=== PATIENT | female | born 1955 | race African-American/Black ===

== ENCOUNTER 2020-08-04 17:41 | Inpatient (IN) | payer OTHER ==
[~2020-08-04] VITALS: Ht 170.2 cm; Wt 80.0 kg
[2020-08-04 18:29] LABS: BASOPHILS % 0.4 % (0.0-2.0); EOSINOPHILS % 0.3 % (0.0-5.0); HEMATOCRIT. 44.2 % (36.0-48.0); HEMOGLOBIN. 14.4 g/dL (12.0-16.0); LYMPHOCYTES % 19.3 % (20.0-50.0); MEAN CORPUSCULAR HEMOGLOBIN 29.2 pg (28.0-32.0); MEAN CORPUSCULAR VOLUME 89.3 fL (81.0-99.0); MEAN PLATELET VOLUME 7.5 fl (7.4-10.4); MONOCYTES % 8.6 % (2.0-8.0); NEUTROPHILS % 71.4 % (40.0-76.0); PLATELET 135 x1000/uL (130-400); RED BLOOD CELL COUNT 4.95 mill/uL (4.2-5.4)
[2020-08-04 18:33] LABS: CHLORIDE 104 mEq/L (98-107)
[2020-08-04 18:38] LABS: ETHANOL BLOOD < 10 mg/dL; INR 1.1; PROTHROMBIN TIME 11.1 sec (9.6-11.0)
[2020-08-04 18:42] LABS: CREATINE KINASE 224 IU/L (26-192)
[2020-08-04 22:27] LABS: CLARITY URINE CLEAR (CLEAR); COLOR URINE DARK YELLOW (YELLOW); KETONES URINE 2+ (NEGATIVE); LEUKOCYTE ESTERASE URINE TRACE (NEGATIVE); NITRITE URINE NEGATIVE (NEGATIVE); OCCULT BLOOD URINE NEGATIVE (NEGATIVE); PH URINE 5.5 (4.5-8.0); PROTEIN URINE 2+ (NEGATIVE); SPECIFIC GRAVITY URINE 1.029 (1.005-1.030)
[2020-08-04 22:38] LABS: *AMPHETAMINES SCREEN URINE NEGATIVE (NEGATIVE); *BARBITURATES SCREEN URINE NEGATIVE (NEGATIVE); *BENZODIAZEPINES SCREEN URINE NEGATIVE (NEGATIVE); *COCAINE SCREEN URINE NEGATIVE (NEGATIVE); CANNABINOID URINE SCREEN NEGATIVE (NEGATIVE)
[2020-08-04 22:39] LABS: METHADONE URINE SCREEN NEGATIVE (NEGATIVE); OPIATES URINE SCREEN NEGATIVE (NEGATIVE); PHENCYCLIDINE URINE SCREEN NEGATIVE (NEGATIVE)
[2020-08-04] MEDS ORDERED: ACETAMINOPHEN 325MG TABLET PO PRN (22:45)
[2020-08-04] MEDS ORDERED: MAGNESIUM/ALUMINUM HYDROXIDE/SIMETHICONE 30ML UDC PO PRN (22:45)
[2020-08-04] MEDS ORDERED: HYDROCODONE/ACETAMINOPHEN 5/325MG TABLET PO PRN (22:45)
[2020-08-04] MEDS ORDERED: SODIUM CHLORIDE 0.45% 1,000 ML IV SCH (22:45)
[2020-08-04] MEDS ORDERED: NA PHOS,M-B/NA PHOS,DI-BA ENEMA 118ML PR PRN (22:45)
[2020-08-04] MEDS ORDERED: GUAIFENESIN 200MG/10ML SUGAR FREE UDC PO PRN (22:45)
[2020-08-04] MEDS ORDERED: ONDANSETRON HCL 4MG/2ML INJ IV PRN (22:45)
[2020-08-04] MEDS ORDERED: DOCUSATE SODIUM 100MG CAPSULE PO PRN (22:45)
[2020-08-04] MEDS ORDERED: CLONIDINE 0.1MG TABLET PO PRN (22:45)
[2020-08-04] MEDS ORDERED: CEFTRIAXONE 1 G PREMIX 50 ML IV SCH (23:30)
[2020-08-05] MEDS ORDERED: CEFTRIAXONE 1 G PREMIX 50 ML IV SCH
[2020-08-05 06:26] LABS: BASOPHILS % 0.3 % (0.0-2.0); EOSINOPHILS % 0.6 % (0.0-5.0); HEMOGLOBIN. 13.3 g/dL (12.0-16.0); LYMPHOCYTES % 29.6 % (20.0-50.0); MEAN CORPUSCULAR HEMOGLOBIN 29.4 pg (28.0-32.0); MEAN CORPUSCULAR VOLUME 88.1 fL (81.0-99.0); MEAN PLATELET VOLUME 7.5 fl (7.4-10.4); MONOCYTES % 13.4 % (2.0-8.0); NEUTROPHILS % 56.1 % (40.0-76.0); PLATELET 131 x1000/uL (130-400); RED BLOOD CELL COUNT 4.54 mill/uL (4.2-5.4)
[2020-08-05 06:27] LABS: CHLORIDE 104 mEq/L (98-107)
[2020-08-05 06:37] LABS: LDL CHOLESTEROL 70 mg/dL (5-100)
[2020-08-05 06:38] LABS: CREATINE KINASE 267 IU/L (26-192); T4 FREE 1.46 ng/dL (0.76-1.46)
[2020-08-05 06:39] LABS: HDL CHOLESTEROL 50 mg/dL (40-59)
[2020-08-05] MEDS ORDERED: LISINOPRIL 10MG TABLET PO SCH (09:00)
[2020-08-05 13:20] VITALS: BP 156/74
== END 2020-08-05 13:29 | disposition home or self-care (01) | DRG 312 ==
LOC: ER 17:41 → MICUSO 21:32 → EDBEDREQSVC 21:37 → EDBEDREQ 21:37 → EDBEDREQTM 21:37
PROVIDERS: ADMIT Hospitalist; ATTEND Hospitalist
DX: R55 Syncope and collapse (principal); G93.41 Metabolic encephalopathy; E87.2 Acidosis; I10 Essential (primary) hypertension; W18.30XA Fall on same level, unspecified, initial encounter; Z82.49 Family history of ischemic heart disease and other diseases of the circulatory system; Y93.89 Activity, other specified; Z86.73 Personal history of transient ischemic attack (TIA), and cerebral infarction without residual deficits; Y92.89 Other specified places as the place of occurrence of the external cause; Y99.8 Other external cause status
CPT/HCPCS: 36415; 71045; 80053; 80061; 80305; 80320; 81003; 82550; 83605; 84145; 84439; 84443; 84484; 85025; 86140; 86850; 86900; 93005; 93970; 99285; J0696; G0480

== ENCOUNTER 2021-07-12 18:18 | Emergency (ER) | payer OTHER ==
[~2021-07-12] VITALS: Ht 167.6 cm; Wt 70.0 kg
[2021-07-12 19:16] LABS: BASOPHILS % 0.4 % (0.0-2.0); EOSINOPHILS % 3.8 % (0.0-5.0); HEMATOCRIT. 39.7 % (36.0-48.0); HEMOGLOBIN. 12.9 g/dL (12.0-16.0); LYMPHOCYTES % 35.1 % (20.0-50.0); MEAN CORPUSCULAR VOLUME 89.7 fL (81.0-99.0); MEAN PLATELET VOLUME 7.3 fl (7.4-10.4); MONOCYTES % 9.7 % (2.0-8.0); PLATELET 184 x1000/uL (130-400); RED BLOOD CELL COUNT 4.43 mill/uL (4.2-5.4); RED CELL DISTRIBUTION WIDTH 14.6 % (11.6-14.6)
[2021-07-12 19:22] LABS: CHLORIDE 110 mEq/L (98-107)
[2021-07-12 22:00] VITALS: BP 165/75
== END 2021-07-12 23:22 | disposition home or self-care (01) ==
LOC: ER 18:18
DX: R07.89 Other chest pain (principal); R42 Dizziness and giddiness; I10 Essential (primary) hypertension; Z86.73 Personal history of transient ischemic attack (TIA), and cerebral infarction without residual deficits
CPT/HCPCS: 36415; 71045; 80053; 83880; 84484; 85025; 93005; 99285

== ENCOUNTER 2023-06-01 11:15 | Emergency (ER) | payer OTHER ==
[~2023-06-01] VITALS: Ht 165.1 cm; Wt 59.0 kg
[2023-06-01 11:19] VITALS: O2SAT 98
[2023-06-01] MEDS ORDERED: ASPIRIN 81MG TABLET PO ONE (12:00)
[2023-06-01 12:25] LABS: CLARITY URINE CLEAR (CLEAR); COLOR URINE YELLOW (YELLOW); GLUCOSE URINE NEGATIVE (NEGATIVE); KETONES URINE NEGATIVE (NEGATIVE); LEUKOCYTE ESTERASE URINE TRACE (NEGATIVE); NITRITE URINE NEGATIVE (NEGATIVE); OCCULT BLOOD URINE NEGATIVE (NEGATIVE); PH URINE >=9.0 (4.5-8.0); PROTEIN URINE NEGATIVE (NEGATIVE); SPECIFIC GRAVITY URINE 1.012 (1.005-1.030); UROBILINOGEN URINE 0.2 E.U./dL (0.2-1.0)
[2023-06-01 12:27] LABS: RBC URINE NONE SEEN /hpf (0-2); YEAST URINE NONE SEEN
[2023-06-01 12:37] LABS: MUCUS URINE TRACE /lpf (< = 2+); SQUAMOUS EPITHELIAL CELL URINE 1+ /lpf (RARE/1+)
[2023-06-01 12:38] LABS: BACTERIA URINE 1+
[2023-06-01 12:52] LABS: BASOPHILS % 0.6 % (0.0-2.0); HEMATOCRIT. 40.1 % (36.0-48.0); HEMOGLOBIN. 13.2 g/dL (12.0-16.0); LYMPHOCYTES % 36.4 % (20.0-50.0); MEAN CORPUSCULAR HGB CONC 32.8 g/dL (31.0-37.0); MEAN CORPUSCULAR VOLUME 91.4 fL (81.0-99.0); MEAN PLATELET VOLUME 7.5 fl (7.4-10.4); MONOCYTES % 9.7 % (2.0-8.0); NEUTROPHILS % 50.3 % (40.0-76.0); PLATELET 161 x1000/uL (130-400); RED BLOOD CELL COUNT 4.39 mill/uL (4.2-5.4); RED CELL DISTRIBUTION WIDTH 14.9 % (11.6-14.6); WHITE BLOOD COUNT 5.5 x1000/uL (4.5-11.0)
[2023-06-01 13:17] LABS: CHLORIDE 110 mEq/L (98-107); INDEX HEMOLYSI 1 (1-3); INDEX ICTERIC 1 (1-4); INDEX LIPEMIC 1 (1-3); POTASSIUM 3.9 mEq/L (3.5-5.1); SODIUM 141 mEq/L (136-145)
[2023-06-01 13:29] LABS: ALANINE AMINOTRANSFERASE 27 IU/L (13-61); ALBUMIN 3.7 g/dL (3.4-5.0); ASPARTATE AMINOTRANSFERASE 30 IU/L (15-37); BILIRUBIN TOTAL 1.2 mg/dL (0.1-1.0); CALCIUM 8.9 mg/dL (8.5-10.1); CARBON DIOXIDE 25 mEq/L (21-32); CREATININE 0.9 mg/dL (0.6-1.3); GLUCOSE 103 mg/dL (70-105); PROTEIN TOTAL 7.2 g/dL (6.0-8.3); TROPONIN I HIGH SENSITIVITY 11 ng/L (<54); UREA NITROGEN BLOOD 17 mg/dL (7-21)
[2023-06-01] MEDS ORDERED: NITROGLYCERIN 0.4MG TABLET SL SL ONE (14:30)
[2023-06-01] MEDS ORDERED: LORAZEPAM 0.5MG TABLET PO ONE (17:15)
[2023-06-01 17:46] VITALS: BP 184/84; PULSE 62; RESP 16; TEMP 98.1
== END 2023-06-01 18:16 | disposition short-term general hospital (02) ==
LOC: ER 11:15
DX: R07.89 Other chest pain (principal); I20.0 Unstable angina; I10 Essential (primary) hypertension; Z86.73 Personal history of transient ischemic attack (TIA), and cerebral infarction without residual deficits
CPT/HCPCS: 80053; 81003; 85025; 84484; 36415; 71045; 93005; 99291; Z7610 ×4

== ENCOUNTER 2023-08-29 21:07 | Emergency (ER) | payer OTHER ==
[~2023-08-29] VITALS: Ht 165.1 cm; Wt 70.0 kg
[2023-08-29 21:09] VITALS: TEMP 98; O2SAT 100
[2023-08-29] MEDS ORDERED: SODIUM CHLORIDE 0.9% 1,000 ML IV ONE (22:00)
[2023-08-30 00:20] LABS: BASOPHILS % 0.3 % (0.0-2.0); EOSINOPHILS % 1.6 % (0.0-5.0); HEMATOCRIT. 38.7 % (36.0-48.0); HEMOGLOBIN. 12.6 g/dL (12.0-16.0); LYMPHOCYTES % 18.5 % (20.0-50.0); MEAN CORPUSCULAR HEMOGLOBIN 29.8 pg (28.0-32.0); MEAN CORPUSCULAR HGB CONC 32.6 g/dL (31.0-37.0); MEAN CORPUSCULAR VOLUME 91.3 fL (81.0-99.0); MEAN PLATELET VOLUME 7.2 fl (7.4-10.4); MONOCYTES % 8.4 % (2.0-8.0); NEUTROPHILS % 71.2 % (40.0-76.0); PLATELET 219 x1000/uL (130-400); RED BLOOD CELL COUNT 4.24 mill/uL (4.2-5.4); WHITE BLOOD COUNT 8.5 x1000/uL (4.5-11.0)
[2023-08-30 00:31] LABS: PROTHROMBIN TIME 10.8 sec (9.6-11.0)
[2023-08-30 00:36] LABS: ALANINE AMINOTRANSFERASE 8 IU/L (10-49); ALBUMIN 3.5 g/dL (3.2-4.8); ASPARTATE AMINOTRANSFERASE 17 IU/L (<34); BILIRUBIN TOTAL 0.4 mg/dL (0.1-1.0); CALCIUM 8.9 mg/dL (8.7-10.4); CARBON DIOXIDE 25 mEq/L (21-32); CHLORIDE 110 mEq/L (98-107); GLUCOSE 97 mg/dL (70-105); POTASSIUM 4.1 mEq/L (3.5-5.1); PROTEIN TOTAL 7.1 g/dL (6.0-8.3); SODIUM 144 mEq/L (136-145); TROPONIN I HIGH SENSITIVITY 7 ng/L (3.0-34); UREA NITROGEN BLOOD 21 mg/dL (9-23)
[2023-08-30 03:21] VITALS: BP 142/96; PULSE 88; RESP 13
== END 2023-08-30 03:19 | disposition short-term general hospital (02) ==
LOC: ER 21:07
DX: R55 Syncope and collapse (principal); F03.90 Unspecified dementia, unspecified severity, without behavioral disturbance, psychotic disturbance, mood disturbance, and anxiety; I10 Essential (primary) hypertension; Z86.73 Personal history of transient ischemic attack (TIA), and cerebral infarction without residual deficits
CPT/HCPCS: 36415; 71045; 99291; 80053; 85025; 85610; 84484; 70450; 93005; 96360; J7030; Z7610

== ENCOUNTER 2024-04-03 11:29 | Inpatient (IN) | payer OTHER ==
[~2024-04-03] VITALS: Ht 170.2 cm; Wt 70.9 kg
[2024-04-03 12:05] LABS: BASOPHILS % 0.5 % (0.0-2.0); EOSINOPHILS % 2.9 % (0.0-5.0); HEMATOCRIT. 45.8 % (36.0-48.0); HEMOGLOBIN. 15.2 g/dL (12.0-16.0); LYMPHOCYTES % 33.8 % (20.0-50.0); MEAN CORPUSCULAR HEMOGLOBIN 30.8 pg (28.0-32.0); MEAN CORPUSCULAR HGB CONC 33.3 g/dL (31.0-37.0); MEAN CORPUSCULAR VOLUME 92.7 fL (81.0-99.0); MEAN PLATELET VOLUME 6.7 fl (7.4-10.4); MONOCYTES % 7.4 % (2.0-8.0); NEUTROPHILS % 55.4 % (40.0-76.0); PLATELET 179 x1000/uL (130-400); RED BLOOD CELL COUNT 4.94 mill/uL (4.2-5.4); RED CELL DISTRIBUTION WIDTH 14.6 % (11.6-14.6); WHITE BLOOD COUNT 6.4 x1000/uL (4.5-11.0)
[2024-04-03 12:08] LABS: CHLORIDE 108 mEq/L (98-107); POTASSIUM 4.3 mEq/L (3.5-5.1); SODIUM 140 mEq/L (136-145)
[2024-04-03 12:09] LABS: CALCIUM 10.4 mg/dL (8.7-10.4)
[2024-04-03 12:14] LABS: CREATININE 1.1 mg/dL (0.6-1.0); GLUCOSE 99 mg/dL (70-105); UREA NITROGEN BLOOD 15 mg/dL (9-23)
[2024-04-03 12:17] LABS: TROPONIN I HIGH SENSITIVITY 4 ng/L (3.0-34)
[2024-04-03] MEDS: SODIUM CHLORIDE 0.9% 1,000 ML IV ONE (12:21)
[2024-04-03] MEDS: METOCLOPRAMIDE HCL 10MG/2ML VIAL IV ONE (12:21)
[2024-04-03] MEDS: KETOROLAC 30MG/ML VIAL IV STA (12:21)
[2024-04-03 13:35] LABS: CARBON DIOXIDE 24 mEq/L (21-32)
[2024-04-03] MEDS ORDERED: ONDANSETRON HCL 4MG/2ML INJ IV PRN (15:00)
[2024-04-03] MEDS ORDERED: ACETAMINOPHEN 325MG TABLET PO PRN (15:00)
[2024-04-03] MEDS ORDERED: IPRATROPIUM/ALBUTEROL 0.5-3(2.5)MG/3ML NEB HHN PRN (15:00)
[2024-04-03] MEDS: CLONIDINE 0.1MG TABLET PO PRN (20:19)
[2024-04-03 22:00] VITALS: BP 151/70; PULSE 67; RESP 18; TEMP 36.3624
[2024-04-03] MEDS ORDERED: AMLO10TA80 PO (23:08)
[2024-04-03] MEDS ORDERED: OMEP20CA14 PO (23:08)
[2024-04-03] MEDS ORDERED: MELO-106 PO (23:09)
[2024-04-03] MEDS ORDERED: CITA10SO PO (23:10)
[2024-04-03] MEDS ORDERED: LOSA50TA41 PO (23:18)
[2024-04-04] MEDS ORDERED: MEDICATION NOT ON FORMULARY EA (Meloxicam 15 MG) PO SCH (01:15)
[2024-04-04] MEDS: MELOXICAM 7.5MG TABLET PO SCH (01:50)
[2024-04-04] MEDS: LOSARTAN 50 MG TABLET PO SCH (01:50)
[2024-04-04 04:00] VITALS: BP_SYST 132; BP_SYST 136; BP_SYST 138; BP_DIAS 59; BP_DIAS 60; PULSE 50; RESP 19; TEMP 35.61396; O2SAT 100
[2024-04-04 08:03] VITALS: BP_SYST 170; BP_SYST 171; BP_DIAS 67; BP_DIAS 79; PULSE 63; PULSE 67; RESP 18; TEMP 36.6696; O2SAT 99
[2024-04-04] MEDS: AMLODIPINE 10MG TABLET PO SCH (08:55)
[2024-04-04] MEDS: CITALOPRAM HYDROBROMIDE 10MG TABLET PO SCH (08:56)
[2024-04-04] MEDS: OMEPRAZOLE 20MG CAPSULE EXTENDED RELEASE PO SCH (09:00)
[2024-04-04] MEDS ORDERED: MELOXICAM 7.5MG TABLET PO SCH (09:00)
[2024-04-04 09:17] LABS: CHLORIDE 109 mEq/L (98-107); POTASSIUM 4.2 mEq/L (3.5-5.1); SODIUM 140 mEq/L (136-145)
[2024-04-04 09:19] LABS: CALCIUM 9.7 mg/dL (8.7-10.4); CARBON DIOXIDE 24 mEq/L (21-32)
[2024-04-04 09:24] LABS: CREATININE 0.9 mg/dL (0.6-1.0); GLUCOSE 73 mg/dL (70-105); UREA NITROGEN BLOOD 11 mg/dL (9-23)
[2024-04-04 11:29] VITALS: BP 138/65; PULSE 59; RESP 18; TEMP 36.55848; O2SAT 97
[2024-04-04 12:18] LABS: BASOPHILS % 0.5 % (0.0-2.0); EOSINOPHILS % 2.7 % (0.0-5.0); HEMATOCRIT. 41.9 % (36.0-48.0); HEMOGLOBIN. 13.8 g/dL (12.0-16.0); LYMPHOCYTES % 29.2 % (20.0-50.0); MEAN CORPUSCULAR HEMOGLOBIN 30.4 pg (28.0-32.0); MEAN CORPUSCULAR HGB CONC 32.9 g/dL (31.0-37.0); MEAN CORPUSCULAR VOLUME 92.5 fL (81.0-99.0); MEAN PLATELET VOLUME 6.9 fl (7.4-10.4); MONOCYTES % 10.5 % (2.0-8.0); NEUTROPHILS % 57.1 % (40.0-76.0); PLATELET 190 x1000/uL (130-400); RED BLOOD CELL COUNT 4.53 mill/uL (4.2-5.4); RED CELL DISTRIBUTION WIDTH 14.3 % (11.6-14.6)
[2024-04-04 12:20] LABS: WHITE BLOOD COUNT 5.4 x1000/uL (4.5-11.0)
[2024-04-04 15:47] VITALS: BP 151/63; PULSE 81; RESP 19; TEMP 36.22512; O2SAT 92
[2024-04-04 20:00] VITALS: BP_SYST 131; BP_SYST 136; BP_SYST 143; BP_DIAS 62; BP_DIAS 69; BP_DIAS 75; PULSE 88; RESP 19; TEMP 36.55848; O2SAT 99
[2024-04-05] VITALS (7 sets, daily range): BP systolic 92–174; BP diastolic 56–86; PULSE 60–88; RESP 18–20; TEMP 36.114–36.6696; O2SAT 99–100
[2024-04-05] MEDS: DIPHENHYDRAMINE 50MG/ML VIAL IV PRN (00:10)
[2024-04-05] MEDS: PANTOPRAZOLE 40MG DR TABLET PO SCH (08:51)
== END 2024-04-05 20:00 | disposition short-term general hospital (02) | DRG 74 ==
LOC: ER 11:29 → 5WST 13:57 → CANBEDREQ 14:01 → 7WST 23:16
PROVIDERS: ADMIT Internal Medicine; ATTEND Internal Medicine
DX: G90.8 Other disorders of autonomic nervous system (principal); G40.909 Epilepsy, unspecified, not intractable, without status epilepticus; I10 Essential (primary) hypertension; F03.90 Unspecified dementia, unspecified severity, without behavioral disturbance, psychotic disturbance, mood disturbance, and anxiety; E11.9 Type 2 diabetes mellitus without complications; R41.89 Other symptoms and signs involving cognitive functions and awareness; G43.909 Migraine, unspecified, not intractable, without status migrainosus; Z86.73 Personal history of transient ischemic attack (TIA), and cerebral infarction without residual deficits; Z82.49 Family history of ischemic heart disease and other diseases of the circulatory system
CPT/HCPCS: 36415; 71045; 80048; 83880; 84484; 85025; 93005; 93306; 93970; 97162; 97166; 99285; J1200; J1885; J2765; J7030

== ENCOUNTER 2024-04-19 15:35 | Emergency (ER) | payer OTHER ==
[~2024-04-19] VITALS: Ht 162.6 cm; Wt 60.0 kg
[~2024-04-19 15:35] MED LIST: AMLO10TA80 PO; CITA10SO PO; LOSA50TA41 PO; MELO-106 PO; OMEP20CA14 PO
[2024-04-19 15:43] VITALS: O2SAT 99
[2024-04-19 16:27] LABS: BASOPHILS % 0.5 % (0.0-2.0); EOSINOPHILS % 1.7 % (0.0-5.0); HEMATOCRIT. 42.6 % (36.0-48.0); HEMOGLOBIN. 13.9 g/dL (12.0-16.0); LYMPHOCYTES % 37.7 % (20.0-50.0); MEAN CORPUSCULAR HEMOGLOBIN 29.9 pg (28.0-32.0); MEAN CORPUSCULAR HGB CONC 32.6 g/dL (31.0-37.0); MEAN CORPUSCULAR VOLUME 91.7 fL (81.0-99.0); MONOCYTES % 11.2 % (2.0-8.0); NEUTROPHILS % 48.9 % (40.0-76.0); PLATELET 199 x1000/uL (130-400); RED BLOOD CELL COUNT 4.65 mill/uL (4.2-5.4); RED CELL DISTRIBUTION WIDTH 14.3 % (11.6-14.6); WHITE BLOOD COUNT 6.8 x1000/uL (4.5-11.0)
[2024-04-19 16:38] LABS: D-DIMER 3.24 mg/L FEU (<0.50); PROTHROMBIN TIME 11.2 sec (9.6-11.0)
[2024-04-19 16:47] LABS: CHLORIDE 108 mEq/L (98-107); POTASSIUM 3.8 mEq/L (3.5-5.1); SODIUM 140 mEq/L (136-145)
[2024-04-19 16:48] LABS: CALCIUM 9.4 mg/dL (8.7-10.4); CARBON DIOXIDE 26 mEq/L (21-32)
[2024-04-19 16:53] LABS: GLUCOSE 94 mg/dL (70-105); UREA NITROGEN BLOOD 11 mg/dL (9-23)
[2024-04-19 16:55] LABS: TROPONIN I HIGH SENSITIVITY 5 ng/L (3.0-34)
[2024-04-19 16:56] LABS: CREATININE 1.3 mg/dL (0.6-1.0)
[2024-04-19] MEDS: ASPIRIN 325MG EC TABLET PO ONE (17:35)
[2024-04-19] MEDS: MORPHINE SULFATE 2 MG/ML INJ (NOT FOR IM USE) IV ONE (17:36)
[2024-04-19 20:36] LABS: TROPONIN I HIGH SENSITIVITY 8 ng/L (3.0-34)
[2024-04-19 22:41] VITALS: BP 117/68; PULSE 70; RESP 16; TEMP 36.61404; O2SAT 96
== END 2024-04-19 23:00 | disposition short-term general hospital (02) ==
LOC: ER 15:35 → EDBEDREQ 15:52 → ER 23:00
DX: R07.89 Other chest pain (principal); I10 Essential (primary) hypertension; F03.90 Unspecified dementia, unspecified severity, without behavioral disturbance, psychotic disturbance, mood disturbance, and anxiety; Z86.59 Personal history of other mental and behavioral disorders; Z86.73 Personal history of transient ischemic attack (TIA), and cerebral infarction without residual deficits
CPT/HCPCS: 80048; 83880; 85025; 85379; 85610; 84484; 36415; 71045; 71250; 93005; 99285; Z7610 ×3

== ENCOUNTER 2024-10-04 11:52 | Emergency (ER) | payer OTHER ==
[~2024-10-04] VITALS: Ht 170.2 cm; Wt 60.0 kg
[2024-10-04 11:54] VITALS: O2SAT 99
[2024-10-04 12:30] LABS: BASOPHILS % 0.5 % (0.0-2.0); EOSINOPHILS % 2.7 % (0.0-5.0); HEMATOCRIT. 44.1 % (36.0-48.0); HEMOGLOBIN. 14.4 g/dL (12.0-16.0); LYMPHOCYTES % 40.1 % (20.0-50.0); MEAN CORPUSCULAR HEMOGLOBIN 30.3 pg (28.0-32.0); MEAN CORPUSCULAR HGB CONC 32.7 g/dL (31.0-37.0); MEAN CORPUSCULAR VOLUME 92.6 fL (81.0-99.0); MEAN PLATELET VOLUME 6.9 fl (7.4-10.4); MONOCYTES % 9.7 % (2.0-8.0); PLATELET 190 x1000/uL (130-400); RED BLOOD CELL COUNT 4.76 mill/uL (4.2-5.4); RED CELL DISTRIBUTION WIDTH 14.5 % (11.6-14.6); WHITE BLOOD COUNT 6.5 x1000/uL (4.5-11.0)
[2024-10-04 12:40] LABS: CHLORIDE 107 mEq/L (98-107); SODIUM 142 mEq/L (136-145)
[2024-10-04 12:41] LABS: CALCIUM 9.8 mg/dL (8.7-10.4); CARBON DIOXIDE 27 mEq/L (21-32)
[2024-10-04 12:46] LABS: CREATININE 0.9 mg/dL (0.6-1.0); GLUCOSE 90 mg/dL (70-105); UREA NITROGEN BLOOD 14 mg/dL (9-23)
[2024-10-04 12:48] LABS: ALANINE AMINOTRANSFERASE 13 IU/L (10-49); ALBUMIN 4.1 g/dL (3.2-4.8); ASPARTATE AMINOTRANSFERASE 21 IU/L (<34); BILIRUBIN DIRECT 0.2 mg/dL (<=3.0); BILIRUBIN TOTAL 0.7 mg/dL (0.1-1.0); PROTEIN TOTAL 7.5 g/dL (6.0-8.3); TROPONIN I HIGH SENSITIVITY 5 ng/L (3.0-34)
[2024-10-04] MEDS: ACETAMINOPHEN 500MG TABLET PO NR (14:10)
[2024-10-04] MEDS: ACETAMINOPHEN 325MG TABLET PO ONE (14:10)
[2024-10-04 14:35] LABS: TROPONIN I HIGH SENSITIVITY 4 ng/L (3.0-34)
[2024-10-04 14:38] VITALS: BP 145/70; PULSE 64; RESP 22; TEMP 36.9; O2SAT 100
== END 2024-10-04 15:12 | disposition home or self-care (01) ==
LOC: ER 11:52
DX: R07.89 Other chest pain (principal); R10.9 Unspecified abdominal pain; I10 Essential (primary) hypertension; F03.90 Unspecified dementia, unspecified severity, without behavioral disturbance, psychotic disturbance, mood disturbance, and anxiety; Z86.73 Personal history of transient ischemic attack (TIA), and cerebral infarction without residual deficits
CPT/HCPCS: 36415; 71045; 80048; 80076; 84484; 85025; 93005; 99285

== ENCOUNTER 2024-10-22 16:44 | Emergency (ER) | payer OTHER ==
[~2024-10-22] VITALS: Ht 165.1 cm; Wt 70.0 kg
[2024-10-22 16:51] VITALS: O2SAT 100
[2024-10-22] MEDS ORDERED: FLUORESCEIN SODIUM 1MG/STRIP BOTHEYE ONE (17:30)
[2024-10-22] MEDS ORDERED: TETRACAINE 0.5% OPHTH DROPS 4ML BOTHEYE ONE (17:30)
[2024-10-22] MEDS: FLUORESCEIN SODIUM 1MG/STRIP BOTHEYE NR (20:58)
[2024-10-22] MEDS: TETRACAINE 0.5% OPHTH DROPS 4ML BOTHEYE NR (20:58)
[2024-10-22] MEDS ORDERED: CIPR2.5D20 LEFTEYE (21:41)
[2024-10-22 22:38] VITALS: BP 128/86; PULSE 91; RESP 16; TEMP 36.9; O2SAT 100
== END 2024-10-22 22:42 | disposition home or self-care (01) ==
LOC: ER 16:44
DX: H57.13 Ocular pain, bilateral (principal); F03.90 Unspecified dementia, unspecified severity, without behavioral disturbance, psychotic disturbance, mood disturbance, and anxiety; I10 Essential (primary) hypertension; Z79.1 Long term (current) use of non-steroidal anti-inflammatories (NSAID); Z79.899 Other long term (current) drug therapy; Z86.73 Personal history of transient ischemic attack (TIA), and cerebral infarction without residual deficits
CPT/HCPCS: 70480; 99284; Z7610